=== PATIENT | female | born 1985 | race African-American/Black ===

== ENCOUNTER 2024-11-29 10:10 | Emergency (ER) | payer MEDICAID ==
[~2024-11-29] VITALS: Ht 160 cm; Wt 113.4 kg
[2024-11-29 10:18] VITALS: BP 159/105; RESP 16; TEMP 98.5; O2SAT 100
[2024-11-29 10:20] VITALS: PULSE 108; O2SAT 100
[2024-11-29 11:03] LABS: BASOPHILS % 0.4 % (0.0-2.0); HEMATOCRIT. 37.4 % (36.0-48.0); HEMOGLOBIN. 11.9 g/dL (12.0-16.0); LYMPHOCYTES % 37.9 % (20.0-50.0); MEAN CORPUSCULAR HEMOGLOBIN 27.7 pg (28.0-32.0); MEAN CORPUSCULAR HGB CONC 31.9 g/dL (31.0-37.0); MEAN PLATELET VOLUME 7.7 fl (7.4-10.4); MONOCYTES % 7.2 % (2.0-8.0); NEUTROPHILS % 53.5 % (40.0-76.0); PLATELET 354 x1000/uL (130-400); RED BLOOD CELL COUNT 4.29 mill/uL (4.2-5.4); RED CELL DISTRIBUTION WIDTH 14.4 % (11.6-14.6); WHITE BLOOD COUNT 5.1 x1000/uL (4.5-11.0)
[2024-11-29 11:23] LABS: CHLORIDE 107 mEq/L (98-107); SODIUM 142 mEq/L (136-145)
[2024-11-29 11:24] LABS: CARBON DIOXIDE 27 mEq/L (21-32)
[2024-11-29 11:25] LABS: CALCIUM 10.2 mg/dL (8.7-10.4)
[2024-11-29 11:28] LABS: CLARITY URINE CLEAR (CLEAR); COLOR URINE YELLOW (YELLOW); GLUCOSE URINE NEGATIVE (NEGATIVE); KETONES URINE NEGATIVE (NEGATIVE); LEUKOCYTE ESTERASE URINE TRACE (NEGATIVE); NITRITE URINE NEGATIVE (NEGATIVE); OCCULT BLOOD URINE NEGATIVE (NEGATIVE); PROTEIN URINE NEGATIVE (NEGATIVE); UROBILINOGEN URINE 0.2 E.U./dL (0.2-1.0)
[2024-11-29 11:30] LABS: GLUCOSE 78 mg/dL (70-105); TROPONIN I HIGH SENSITIVITY 5 ng/L (3.0-34); UREA NITROGEN BLOOD 10 mg/dL (9-23)
[2024-11-29 11:31] LABS: ALANINE AMINOTRANSFERASE 10 IU/L (10-49); ALBUMIN 4.7 g/dL (3.2-4.8); ASPARTATE AMINOTRANSFERASE 20 IU/L (<34)
[2024-11-29 11:32] LABS: BILIRUBIN TOTAL 0.4 mg/dL (0.1-1.0); PROTEIN TOTAL 7.9 g/dL (6.0-8.3)
[2024-11-29 11:35] LABS: HCG SCREEN NEGATIVE
[2024-11-29 11:46] LABS: BACTERIA URINE 1+; RBC URINE 0-2 /hpf (0-2); SQUAMOUS EPITHELIAL CELL URINE 1+ /lpf (RARE/1+); WBC URINE 0-2 /hpf (0-2); YEAST URINE NONE SEEN
== END 2024-11-29 17:07 | disposition left against medical advice (07) ==
LOC: ER 10:10
DX: R51.9 Headache, unspecified (principal); F41.9 Anxiety disorder, unspecified; R42 Dizziness and giddiness; Z98.890 Other specified postprocedural states
CPT/HCPCS: 36415; 80053; 81003; 84484; 84703; 85025; 99284